=== PATIENT | male | born 1960 | race Caucasian/White ===

== ENCOUNTER → 2018-09-14 | Outpatient (CLI) | payer OTHER ==
[~2018-09-14] MED LIST: GLUCOPHAGE500 MG; NORCO 5-325 TA1 EAC1 PO
--- NOTE | ~2018-09-14 | H ---
[facility] [address] HISTORY AND PHYSICAL Name: PETERSON SCHERER Room #: REG VANE JosephRobbie#: [id number] Admission: 09/14/18 ������������������ Attend Phys: MARIA DEL CARMEN Sutherland Discharge: ������������������ Date of : 62 Report #: [id number] THIS REPORT FOR: //name// CC: Gennaro Reyes MD DATE OF SERVICE: 09/14/2018 INCOMPLETE DICTATION PREOPERATIVE DIAGNOSIS: Obstructive jaundice with gallstone cholecystitis with cholelithiasis. HISTORY OF PRESENT ILLNESS: The patient is a 58-year-old who has not felt well since Thursday. He developed gas pressure over the upper part of the abdomen. He then had right upper quadrant pain, again more of a gas time pressure, rated at 7/10 at its worst. The pain did go into his back. He says today, the pain has improved. The pain was on and off. The patient initially thought he had a flu. He vomited about once a day in the last several days. Thursday, the pain came on after eating spaghetti and garlic butter toast. The patient does have history of indigestion for the last several months, mostly at nighttime. Mild fever. No chills. He did have sweats. The patient stated that his urine is looking dark. Despite that, he has been drinking okay. He is n.p.o. since midnight. I got a call from Dr. Reyes's office that the patient was having gallbladder issues. DICTATION ENDS ABRUPTLY HERE. ��������������������������������������������� ���������������������������������������� By: ��������������������������������������������� [id number] Delgado Wiggins MD /nt
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
== END ==
LOC: ULTRA 10:22
DX: K80.80 Other cholelithiasis without obstruction (principal)

== ENCOUNTER 2018-09-15 11:32 | Inpatient (IN) | payer OTHER ==
[~2018-09-15] VITALS: Ht 170.2 cm; Wt 105.2 kg
--- NOTE | ~2018-09-15 | P ---
[facility] [place] [address] PROCEDURE REPORT Name: PETERSON SCHERER Room #: 432-P ADM IN M.R.#: [id number] Admission: 09/15/18 ������������������ Attend Phys: Delgado Wiggins MD Discharge: ������������������ Date of : 62 Report #: [id number] THIS REPORT FOR: //name// CC: Gennaro Reyes MD DATE OF SERVICE: 09/15/2018 BRIEF HISTORY: The patient is a 58-year-old male who has a known history of choledocholithiasis who recently has had the onset of upper abdominal pain. He was seen by Dr. Wiggins and was originally scheduled for cholecystectomy today. However, he was found to have a bilirubin of 5 and the patient reports acholic stools and he had 2+ bilirubin in his urine. Ultrasound reveals gallstones, but the bile duct was not well seen due to retained small bowel gas. ERCP was requested to clear the duct. PREOPERATIVE DIAGNOSES: Cholelithiasis and choledocholithiasis. POSTOPERATIVE DIAGNOSES: Cholelithiasis and choledocholithiasis. MEDICATIONS: Intubation general anesthesia. SPECIMEN: Debris and sludge removed from common bile ducts and not recovered. ESTIMATED BLOOD LOSS: None. PROCEDURE: ERCP with endoscopic sphincterotomy and extraction of biliary sludge from the common bile duct. FINDINGS: Prior to general anesthesia and intubation, the procedure of ERCP and stone extraction was discussed with the patient as well as potential risks and its complications. He indicates he understands and desires that we proceed. DESCRIPTION OF PROCEDURE: The patient was induced with general anesthesia, intubated, and placed in the prone position. Subsequently, the Olympus side-viewing endoscope was inserted into cervical esophagus and advanced through the esophagus, stomach, across the pylorus into the duodenum. The papilla was identified. It was prominent in size, but it was not extremely large and overall a normal appearance with normal overlying mucosa. There was a small amount of bile on the mouth of the duodenal papilla. Initial cannulation resulted in deep cannulation with the assistance of a guidewire. Subsequently, the biliary tree was filled with contrast. There appeared to be some debris in the distal duct. A large stone was not seen. The common hepatic duct and [facility] [address] [place] [address] PROCEDURE REPORT Name: PETERSON SCHERER Room #: 432-P ADM IN M.R.#: [id number] Admission: 09/15/18 ������������������ Attend Phys: Delgado Wiggins MD Discharge: ������������������ Date of : 62 Report #: [id number] common bile duct were no more than about 5 mm. The cystic duct was patent and contrast filled the gallbladder. We then advanced the sphincterotome wire over the papilla and sphincterotomy was completed. There was a gush of bilious material and some debris and sludge came from the duct. We then did an exchange for balloon catheter and dragged the duct on multiple occasions. At one point, there appeared to be filling defects in the proximal duct. However, this was a good size sphincterotomy of at least a centimeter and air was introduced into the biliary tree. We made several passes and after the final pass, it was felt that this abnormality was an air bubble. Final images revealed that the duct had been cleared. There was excellent drainage from the duct and a large amount of blackish material extruded from the duct. Also, there is no evidence of mass lesions. The scope was withdrawn. The patient tolerated the procedure well. DISPOSITION: Bile duct cleared after endoscopic sphincterotomy and balloon sweeps. If the patient does well this evening, I would anticipate cholecystectomy tomorrow. ��������������������������������������������� ���������������������������������������� By: ��������������������������������������������� [id number] Juan Morrell MD /nt
--- NOTE | ~2018-09-15 | O ---
[facility] [address] OPERATIVE REPORT Name: PETERSON SCHERER Room #: 432-P [facility] IN M.R.#: [id number] Admission: 09/15/18 ������������������ Attend Phys: Delgado Wiggins MD Discharge: 09/16/18 ������������������ Date of : 62 Report #: [id number] THIS REPORT FOR: //name// CC: Delgado Reyes MD DATE OF SERVICE: 09/16/2018 PREOPERATIVE DIAGNOSES: 1. Cholecystitis with cholelithiasis. 2. Umbilical hernia. 3. Obstructive jaundice with status post ERCP. POSTOPERATIVE DIAGNOSES: 1. Cholecystitis with cholelithiasis. 2. Umbilical hernia. 3. Obstructive jaundice with status post ERCP. PROCEDURES PERFORMED: Laparoscopic cholecystectomy, attempted cholangiogram. ANESTHESIA: General. SURGEON: Delgado Wiggins M.D. COMPLICATIONS: None. ESTIMATED BLOOD LOSS: 10 mL. DESCRIPTION OF PROCEDURE: With the patient under general anesthesia, timeout was performed. A 0.25% Marcaine was used to anesthetize the skin. A curvilinear incision was made infraumbilically. This was about 3 cm in length. The patient had an umbilical hernia. The properitoneal fat and hernia sac was opened. There was omentum within the hernia sac. The hernia sac was trimmed off. The omentum was reduced. An 11 mm balloon trocar was then placed. The balloon was inflated keeping a seal. Two 5 mm trocars were placed over the right upper quadrant and a 5 mm trocar right epigastrium after insufflating abdominal cavity. Gallbladder was identified. The fundus of the gallbladder was lifted cephalad. The proximal gallbladder was grasped. The peritoneum was dissected free. The cystic duct was noted to be dilated consistent with passing stone. There is a branch which has Y shaped that went across the cystic duct. This may have contributed to gallbladder disease. This was a branch of cystic artery. This was isolated. Each branch was clipped x 2 proximally and 1 distally and then divided. Cystic duct was then exposed. Again cystic duct is patulous. I decided to go ahead and change the epigastric 5 mm trocar to 11 mm trocar to get a larger clip placed. A clip was placed in junction of cystic [facility] [address] [place] [address] OPERATIVE REPORT Name: PETERSON SCHERER Room #: 432-P [facility] IN M.R.#: [id number] Admission: 09/15/18 ������������������ Attend Phys: Delgado Wiggins MD Discharge: 09/16/18 ������������������ Date of : 62 Report #: [id number] duct to the gallbladder. Opening was made in the cystic duct. Bile came out of it and kind of a dark sludgy color. The cholangiogram catheter was placed without difficulty. However, because of the patulous cystic duct I did have trouble getting a good seal around the cholangiogram catheter. Fluoroscopic cholangiogram was attempted. The catheter was already placed. Cholangiogram catheter initial view did show quite a bit of contrast that extravasated the catheter entrance site. I thought I did see a little bit of the common duct show up going distally and then also going proximally in the common hepatic, but because so much is spilled out of the cannulation site I did not get a good complete fill. The duct is pretty small sized. The cardiac cath lab radiology technologist who did the ERCP noted that that was quite a bit smaller than yesterday. No obvious filling defect. Cholangiogram catheter was then removed. A clip was placed across the cystic duct and this went almost completely over the cystic duct. Because of this, a 0 PDS Endoloop was placed just proximal to the clip that I just described. I cinched down and tied down the cystic duct well. There is another artery that was found. This was isolated, clipped x 2 proximally and 1 distally, then divided. Gallbladder was divided from the liver bed. The gallbladder was placed in a specimen bag, retrieved through the umbilical fascia defect. The gallbladder came out easily. The gallbladder was opened off the field. There is a single 2 to 3 mm stone found. The bile is sludgy. No other stones were identified. I suspect the patient has been passing stones fairly regularly. Looking for common duct, I really could not see it in this area, but I am pretty sure identifying the cystic duct without difficulty. Liver bed was checked, hemostasis excellent. The Endoloop tied this on well. Clips were intact. No bleeding, no bile identified. Irrigation was aspirated out. Trocars were removed. CO2 was evacuated. Because of the working on the gallbladder, I did not want to put any mesh for the umbilical hernia repair. The fascia defect is about 2.5 cm. This was closed with a [id number] 0 PDS with three separate sutures. Skin was irrigated. The umbilical skin was tacked down to the fascia with 5-0 PDS. Skin was closed with 5-0 PDS subcuticular fashion. Steri-Strips were applied. Gauze was placed in the umbilicus for pressure and Op-Site was used for dressing. The patient tolerated the procedure well. ��������������������������������������������� ���������������������������������������� By: ��������������������������������������������� 08 Delgado Wiggins MD /nt
[~2018-09-15 11:32] MED LIST changes: -NORCO 5-325 TA1 EAC1 PO
[2018-09-15 12:46] LABS: APTT 25.8 Seconds (24.5-32.8); PROTIME 10.1 Seconds (9.3-11.4)
[2018-09-15 16:53] VITALS: BP 140/85
[2018-09-15 19:40] VITALS: BP 141/93
[2018-09-16 04:31] VITALS: BP 146/99
[2018-09-16 06:54] LABS: HEMATOCRIT 42.9 % (42.0-52.0); HEMOGLOBIN 14.4 gm/dL (14.0-18.0); MCHC 33.6 g/dL (28.0-37.0); MCV 89.3 fL (80.0-100.0); RBC 4.8 mil/uL (4.50-6.00); RDW 13.4 % (10.5-14.5); WBC 13.5 thou/uL (4.0-11.0)
[2018-09-16 07:12] LABS: ALBUMIN 3.1 g/dL (3.4-5.0); CALCIUM 8.9 mg/dL (8.5-10.1); CREATININE 1.2 mg/dL (0.7-1.3); POTASSIUM 4.6 mmol/L (3.5-5.1); TOTAL BILIRUBIN 1.4 mg/dL (<0.1-1.0)
[2018-09-16 08:27] VITALS: BP 133/79
[2018-09-16] MEDS ORDERED: NORCO 5-325 TA1 EAC1 PO (16:05)
[2018-09-16 17:14] VITALS: BP 120/74
[2018-09-16 18:42] VITALS: BP 120/74
[2018-09-16 19:18] VITALS: BP 150/87
== END 2018-09-16 19:59 | disposition home or self-care (01) | DRG 419 ==
LOC: TBA 11:32 → 4E 11:32
PROVIDERS: ADMIT Surgery
PROC: 0FC98ZZ Extirpation of Matter from Common Bile Duct, Via Natural or Artificial Opening Endoscopic (ICD-10-PCS; principal; 2018-09-15)
PROC: BF121ZZ Fluoroscopy of Gallbladder using Low Osmolar Contrast (ICD-10-PCS; 2018-09-16)
PROC: 0FT44ZZ Resection of Gallbladder, Percutaneous Endoscopic Approach (ICD-10-PCS; 2018-09-16)
DX: K80.61 Calculus of gallbladder and bile duct with cholecystitis, unspecified, with obstruction (principal); K42.9 Umbilical hernia without obstruction or gangrene; E11.9 Type 2 diabetes mellitus without complications; Z83.71 Family history of colonic polyps; Z79.899 Other long term (current) drug therapy
CPT/HCPCS: 10783; 50010; 50101; 50411; 50555; 50558; 50886; 51297; 51474; 51489; 53307; 53310; 53312; 55245; 55317; 56462; 56525; 56526; 62110; 62900; 70005

== ENCOUNTER → 2020-06-01 | Outpatient (CLI) | payer OTHER ==
[~2020-06-01] MED LIST changes: +NORCO 5-325 TA1 EAC1 PO
== END ==
LOC: CAT 09:28
PROVIDERS: ATTEND Neuromusculoskeletal Medicine & OMM
DX: Z13.6 Encounter for screening for cardiovascular disorders (principal); I25.10 Atherosclerotic heart disease of native coronary artery without angina pectoris; E78.00 Pure hypercholesterolemia, unspecified